=== PATIENT | female | born 1995 | race African-American/Black ===

== ENCOUNTER 2019-08-24 21:53 | Emergency (ER) | payer SELFPAY | END 2019-08-24 23:10 | disposition left against medical advice (07) | LOC: ER 21:53 | DX: R11.2 Nausea with vomiting, unspecified (principal); R19.7 Diarrhea, unspecified; Z53.21 Procedure and treatment not carried out due to patient leaving prior to being seen by health care provider ==

== ENCOUNTER 2020-06-01 20:12 | Emergency (ER) | payer SELFPAY ==
[~2020-06-01] VITALS: Ht 157.5 cm; Wt 91.0 kg
[2020-06-01] MEDS ORDERED: LIDOCAINE 1% PF 2 ML VIAL. ONE (20:42)
[2020-06-01] MEDS ORDERED: LIDOCAINE 1% PF 2 ML VIAL. INJ ONE (21:00)
--- NOTE | 2020-06-01 21:01 | RAD ---
Three-view left hand study Clinical indications: Left hand laceration. Went through a window. FINDINGS: No acute fracture or dislocation or lytic process is evident. There is deformity of the distal epiphysis of the fourth middle phalanx consistent with an old healed fracture or could be due to developmental anomaly. No radiopaque foreign body is evident. IMPRESSION: No acute osseous abnormality. Electronically signed by: Cosme Carlton MD (06/01/2020 8:58 PM) [id number]
[2020-06-01] MEDS ORDERED: CEPH-264 PO (22:27)
--- NOTE | 2020-06-01 22:27 | ED.ADGEN ---
Past Medical History Past Medical History: No Pertinent History Past Surgical History: No Surgical History Smoking Status: Former Smoker Alcohol Use: Occasionally General Adult EDM: Chief Complaint: LACERATION/AVULSION HPI: HPI: Patient is a 24 year old AA female, who presents the emergency department with complaints of a laceration to her left hand between third and fourth digits and along the medial aspect of her third digit after accidentally breaking the window this evening. Patient states she was locked out of her home when she was trying to get into it and the window accidentally broke. She denies any decreased range of motion, numbness, or tingling of the digits. She is unsure when her last tetanus shot was. She currently rates her pain a 7 out of 10 on the pain scale, she denies any alleviating factors, pain is worse with movement and palpation. Review of Systems: Review of Systems: Complete ROS is negative unless otherwise noted in HPI. Current Medications: Current Medications Medications (Trade) Dose Ordered Sig/Juan Start Time Stop Time Status Last Admin Dose Admin Lidocaine HCl (Xylocaine-Mpf 1% 2ml Vial) 2 ml STK-MED ONCE 06/01/20 20:42 06/01/20 20:42 DC Allergies: Allergies: Allergies Coded Allergies Type Severity Reaction Last Updated Verified No Known Drug Allergies 06/01/20 No Physical Exam: PE: See Above Constitutional: Well developed, well nourished, no acute distress, non-toxic appearance, obese. [] HENT: Normocephalic, atraumatic, bilateral external ears normal, nose normal. [] Eyes: PERRLA, EOMI, conjunctiva normal, no discharge. [] Neck: Normal range of motion, no stridor. [] Cardiovascular:Heart rate regular rhythm Lungs & Thorax: Respirations even and unlabored, no retractions, no respiratory distress Skin: Warm, dry, no erythema, no rash; there is a vertical laceration along the medial edge of the left third digit extending to the palm between the third and fourth digits, bleeding controlled by bandage in place, no visible foreign body.. [] Extremities: No cyanosis, ROM intact, no edema. [] Neurologic: Alert and oriented X 3, no focal deficits noted. [] Psychologic: Affect normal, judgement normal, mood normal. [] Current Patient Data: Labs: Laboratory Tests Test 06/01/20 20:28 POC Urine HCG, Qualitative Hcg positive (Negative) Vital Signs: Vital Signs Date Time Temp Pulse Resp B/P (MAP) Pulse Ox O2 Delivery O2 Flow Rate FiO2 06/01/20 20:15 97.9 105 20 137/86 (103) 100 Room Air 97.9 EKG: EKG: [] Heart Score: Risk Factors: Risk Factors: DM, Current or recent (<one month) smoker, HTN, HLP, family history of CAD, obesity. Risk Scores: Score 0 - 3: 2.5% MACE over next 6 weeks - Discharge Home Score 4 - 6: 20.3% MACE over next 6 weeks - Admit for Clinical Observation Score 7 - 10: 72.7% MACE over next 6 weeks - Early Invasive Strategies Radiology/Procedures: Radiology/Procedures: PROCEDURE: HAND LEFT 3V Three-view left hand study Clinical indications: Left hand laceration. Went through a window. FINDINGS: No acute fracture or dislocation or lytic process is evident. There is deformity of the distal epiphysis of the fourth middle phalanx consistent with an old healed fracture or could be due to developmental anomaly. No radiopaque foreign body is evident. IMPRESSION: No acute osseous abnormality.[ Laceration Repair by me: Anesthesia: 1% lidocaine locally Location: Left hand Tendon/Joint/Nerves: No injury Foreign body: None detected after copious irrigation and exploration with normal saline and surgical scrub Technique: 11 simple Interrupted Sutures with 4-0 Ethilon Complexity: No subcutaneous sutures/mucosal repair/edge excision Post Closure Length: 4 cm Patient's bleeding was easily controlled in the department and there is no indication of anemia. No evidence of compartment syndrome, neurologic injury, vascular injury, open joint, tendon laceration, or foreign body. Patient is appropriate for outpatient follow up. ] Course & Med Decision Making: Course & Med Decision Making Pertinent Labs and Imaging studies reviewed. (See chart for details) [] Dragon Disclaimer: Dragon Disclaimer: This electronic medical record was generated, in whole or in part, using a voice recognition dictation system. Departure Departure Impression: Primary Impression: Laceration of left hand without complication, including fingers Disposition: 01 DC HOME SELF CARE/HOMELESS Condition: STABLE Referrals: NO PCP (PCP) Patient Instructions: Laceration Care, Adult, [id number] Additional Instructions: Fill the prescription and use it as directed. Keep the area clean and dry. You may take Tylenol or ibuprofen as needed for pain. Keep the dressing that was placed today on for 24 hours then change the dressing twice a day and apply antibiotic ointment to the area. Follow-up with your primary care doctor, or return to the emergency room in 10-14 days to have the sutures removed, sooner if you develop signs of infection including: redness, warmth, drainage, or a fever. You have been tested for or diagnosed with COVID-19. It is an infection caused by a new type of coronavirus. COVID-19 will cause cold-like or mild flu symptoms in most. It can cause more severe symptoms like problems breathing in some. There is no treatment for COVID-19. The body will clear the infection over time. Self-care will help to ease discomfort. Steps to Take: Self-Care Rest as needed. Healthy habits may help you feel better. Steps include: Choose healthy foods including fruits and vegetables. Drink water throughout the day. Get plenty of sleep each night. If you smoke, try to quit. It may ease breathing. Avoid alcohol. Keep Others Healthy The virus can spread to others. Droplets are released every time you sneeze or cough. The droplets can get into the mouth, nose, or eyes of people near you and lead to infection. To lower the chances of spreading COVID-19 to others: Stay at home until your doctor has said it is safe to leave. If you tested positive this will mean staying isolated until both of the following are true: At least 7 days have passed since the start of illness. You are free of fever for at least 72 hours without the use of medicine. During this time: - Avoid public areas, events, or transportation. Do not return to work or school until your doctor has said it is safe to do so. - Call ahead if you need to go to a medical center. Let them know you may have COVID-19. It will help them guide you where to go. They may also ask you to wear a facemask when you come to the office. - If you call for emergency medical services, let them know you may have COVID- 19. While at home: - Try to avoid close contact with others. Stay about 6 feet away. - If possible, spend most of your time in a separate room from others. - Use a face mask if you will be in close contact with others such as sharing a room or vehicle. - Have someone wipe down common surfaces in the home. Use household bus repair supervisor ev lesly day on areas like doorknobs, counters, or sinks. - Cough or sneeze into a tissue. Throw the tissue away right after use. If a tissue is not available, cough or sneeze into your elbow. - Wash your hands often. Wash them after sneezing or coughing. Use soap and water and wash for at least 20 seconds. Alcohol based hand laboratory equipment cleaner can be used if soap and water is not available. - Do not prepare food for others. Avoid sharing personal items like forks, spoons, or toothbrushes. - Avoid close contact with pets while you are sick. There is no evidence of the virus passing to pets. This is a safety step until more is known about this virus. Isolation can be frustrating. Social interaction can help. Keep in touch with friends and family through phone and tech options. You can still interact with others in your home, just keep a safe distance of about 6 feet. Follow-up: Your doctors office will check in with you to see if there are any changes in your health. You may be asked to keep track of symptoms to share with them. They will also let you know when you are clear to be in public again. Problems to Look Out For: Contact your doctor if your recovery is not going as you expect. Get emergency care if you have problems such as: - Trouble breathing - Nonstop chest pain or pressure - Changes in awareness, confusion, or problems waking - Lips or face have bluish color - Worsening of symptoms If you think you have an emergency, call for emergency medical services right away. As taken from [facility] [place] [facility] Cephalexin (KEFLEX) 500 Mg Capsule 500 MG PO QID for 7 Days, #28 CAP 0 Refills Prov: ANDREAS LOTT [employer] DEVELOPMENT DIRECTOR 06/01/20 Problem Qualifiers Primary Impression: Laceration of left hand without complication, including fingers Encounter type: initial encounter Qualified Codes: S61.412A - Laceration without foreign body of left hand, initial encounter; S61.219A - Laceration without foreign body of unspecified finger without damage to nail, initial encounter ANDREAS LOTT [employer] DEVELOPMENT DIRECTOR Jun 01, 2020 22:27
[2020-06-01 22:44] VITALS: BP 144/64
== END 2020-06-01 22:40 | disposition home or self-care (01) ==
LOC: ER 20:12
DX: O9A.211 Injury, poisoning and certain other consequences of external causes complicating pregnancy, first trimester (principal); S61.412A Laceration without foreign body of left hand, initial encounter; Z87.891 Personal history of nicotine dependence; Z3A.00 Weeks of gestation of pregnancy not specified; W26.8XXA Contact with other sharp object(s), not elsewhere classified, initial encounter; Y93.89 Activity, other specified; Y92.89 Other specified places as the place of occurrence of the external cause; Y99.8 Other external cause status
CPT/HCPCS: 12002; 73130; 81025; 99283; J3490; 12013